=== PATIENT | female | born 1945 | race Caucasian/White ===

== ENCOUNTER 2016-12-20 12:19 | Outpatient (CLI) | payer OTHER ==
[2016-12-20 12:29] LABS: BASOPHILS % (AUTO) 0.6 % (0.0-3.0); EOSINOPHILS # (AUTO) 0.1 K/ul (0.0-0.7); EOSINOPHILS % (AUTO) 1.3 % (0.0-7.0); HEMATOCRIT 39.4 % (37.0-47.0); HEMOGLOBIN 13.5 g/dl (12.0-16.0); IMMATURE GRANULOCYTE % (AUTO) 0.3 % (0.0-5.0); LYMPHOCYTES # (AUTO) 2.3 K/uL (0.60-3.4); LYMPHOCYTES % (AUTO) 33.9 (10.0-50.0); MEAN CORPUSCULAR HEMOGLOBIN 31.3 pg (27.0-31.0); MEAN CORPUSCULAR HGB CONC 34.3 (31.8-35.4); MEAN CORPUSCULAR VOLUME 91.2 fl (81.0-99.0); MONOCYTES # (AUTO) 0.5 K/uL (0.4-2.0); MONOCYTES % (AUTO) 7.2 (0-10); NEUTROPHILS # (AUTO) 3.9 K/ul (2.0-6.9); NEUTROPHILS % (AUTO) 56.7; PLATELET COUNT 290 10^3/uL (140-440); RED BLOOD COUNT 4.32 10^6/ul (4.20-5.40); WHITE BLOOD COUNT 6.81 K/ul (4.6-10.2)
[2016-12-20 12:42] LABS: ALBUMIN 3.4 g/dL (3.4-5.0); ALBUMIN/GLOBULIN RATIO 1.06; ANION GAP 12.4; BILIRUBIN,TOTAL 0.53 mg/dL (0.00-1.20); BUN/CREATININE RATIO 11.49; CALCIUM 9.4 mg/dL (8.2-10.2); CREATININE 0.87 mg/dL (0.60-1.30); POTASSIUM 4.4 mmol/L (3.5-5.10); TOTAL PROTEIN 6.6 g/dL (5.8-8.1)
== END 2016-12-20 12:20 | disposition home or self-care (01) ==
LOC: LAB 12:19
PROVIDERS: ATTEND Nurse Practitioner Family
DX: R21 Rash and other nonspecific skin eruption (principal)
CPT/HCPCS: 36415; 80053; 85025

== ENCOUNTER 2017-01-04 10:00 | Outpatient (CLI) ==
--- NOTE | 2017-01-05 10:15 | MAMMO ---
EXAM: Digital screening mammogram with 3-D tomosynthesis and CAD HISTORY: Screening mammogram. COMPARISON: Mammogram 01/13/2016 and 01/13/2015 FINDINGS: Breast density is scattered fibroglandular densities. There are bilateral benign calcifica tions present. There is a left breast. Intramammary lymph node laterally with fatty hilum identifie d on tomosynthesis. There is no suspicious calcification or nodule. There is no interval change. IMPRESSION: No new or suspicious nodule or calcification. Recommendation: Annual screening mammogram. BIRADS II: Benign findings
== END 2017-01-04 10:01 | disposition home or self-care (01) ==
LOC: RAD 10:00
PROVIDERS: ATTEND Family Medicine
DX: Z12.31 Encounter for screening mammogram for malignant neoplasm of breast (principal)
CPT/HCPCS: 77067

== ENCOUNTER 2017-02-10 19:59 | Emergency (ER) ==
[2017-02-10 20:07] VITALS: BP 138/75; TEMP 99.9; BMI 28.2
[2017-02-10 21:20] LABS: BASOPHILS % (AUTO) 0.2 % (0.0-3.0); EOSINOPHILS # (AUTO) 0.1 K/ul (0.0-0.7); EOSINOPHILS % (AUTO) 1.6 % (0.0-7.0); HEMATOCRIT 34.7 % (37.0-47.0); HEMOGLOBIN 11.8 g/dl (12.0-16.0); IMMATURE GRANULOCYTE % (AUTO) 0.4 % (0.0-5.0); LYMPHOCYTES # (AUTO) 1.4 K/uL (0.60-3.4); LYMPHOCYTES % (AUTO) 17.7 (10.0-50.0); MEAN CORPUSCULAR HEMOGLOBIN 30.6 pg (27.0-31.0); MEAN CORPUSCULAR VOLUME 89.9 fl (81.0-99.0); MONOCYTES # (AUTO) 0.7 K/uL (0.4-2.0); MONOCYTES % (AUTO) 8.8 (0-10); NEUTROPHILS # (AUTO) 5.7 K/ul (2.0-6.9); NEUTROPHILS % (AUTO) 71.3; PLATELET COUNT 222 10^3/uL (140-440); RED BLOOD COUNT 3.86 10^6/ul (4.20-5.40); WHITE BLOOD COUNT 8.03 K/ul (4.6-10.2)
[2017-02-10 21:28] LABS: BILIRUBIN,URINE Negative (NEGATIVE); KETONES,URINE Negative (NEGATIVE); LEUKOCYTE ESTERASE ,URINE 2+ (NEGATIVE); NITRITE,URINE Positive (NEGATIVE); PROTEIN,URINE Trace (NEGATIVE); URINE, BLOOD 1+ (NEGATIVE)
[2017-02-10 21:30] LABS: ADD URINE MICROSCOPIC YES
[2017-02-10 21:31] LABS: BACTERIA,URINE 2+ (NOT PRESENT)
[2017-02-10 21:38] LABS: FLU INTERNAL QC INTERNAL QC VALID; MOLECULAR FLU A NEGATIVE (NEGATIVE); MOLECULAR FLU B NEGATIVE (NEGATIVE)
[2017-02-10 21:39] LABS: ALBUMIN 3.3 g/dL (3.4-5.0); ALBUMIN/GLOBULIN RATIO 0.97; ANION GAP 14.1; BILIRUBIN,TOTAL 0.4 mg/dL (0.00-1.20); BUN/CREATININE RATIO 11.53; CREATININE 0.78 mg/dL (0.60-1.30); POTASSIUM 4.1 mmol/L (3.5-5.10); TOTAL PROTEIN 6.7 g/dL (5.8-8.1)
[2017-02-10] MEDS ORDERED: DOXYCYCLINE HYCLATE PO STA (22:00)
--- NOTE | 2017-02-10 22:04 | ED.PDOC ---
General ED Provider: Dr. EVERTON ARIAS-ER Chief Complaint: Fever Stated Complaint: naomi got a fever -- Time Seen by Physician: 22:02 Mode of Arrival: Walk-In Information Source: Patient Exam Limitations: No limitations Primary Care Provider: EVERTON ARIAS Nursing and Triage Documentation Reviewed and Agree: Yes Reviewed sepsis parameters & appropriate labs ordered?: Yes System Inflammatory Response Syndrome: Not Applicable Sepsis Protocol: For patient's 13 years and over: Temp is 96.8 and below OR 101 and greater Pulse >90 BPM Resp >20/minute Acutely Altered Mental Status Are patient's symptoms suggestive of a new infection, such as: -Pneumonia -Skin, Soft Tissue -Endocarditis -UTI -Bone, Joint Infection -Implantable Device -Acute Abdominal Infection -Wound Infection -Meningitis -Blood Stream Catheter Infection -Unknown Miscellaneous Complaint Exam - Febrile Illness/Adult Complaint/Exam Onset/Duration: 24hrs Symptoms Are: Still present Initial Severity: Mild Current Severity: Mild Aggravating: Reports: None Alleviating: Reports: None Associated Signs and Symptoms: Reports: Nausea, Chills, Rash. Denies: Headache , Fluid intake, Short of air, Cough, Sore throat, Vomiting, Diaphoresis, Dysuria , Arthralgia, Stiff neck, Myalgia, Altered mental status Pseudomonas Risk Factors: Reports: None Patient Advised to Stop Smoking: No Review of Systems - Review Of Systems Constitutional: Reports: No symptoms, Chills, Fever Eyes: Reports: No symptoms Ears, Nose, Mouth, Throat: Reports: No symptoms Respiratory: Reports: No symptoms Cardiac: Reports: No symptoms GI: Reports: No symptoms : Reports: No symptoms Musculoskeletal: Reports: No symptoms Skin: Reports: Rash Neurological: Reports: No symptoms Endocrine: Reports: No symptoms Hematologic/Lymphatic: Reports: No symptoms All Other Systems: Reviewed and Negative Past Medical History - Past Medical History Previously Healthy: No Endocrine: Reports: Unknown Cardiovascular: Reports: Unknown Respiratory: Reports: Unknown Hematological: Reports: Unknown Gastrointestinal: Reports: Unknown Genitourinary: Reports: Unknown Neuro/Psych: Reports: Unknown Musculoskeletal: Reports: Unknown Cancer: Reports: Unknown Last Menstrual Period: na - Surgical History General Surgical History: Reports: Unknown - Family History Family History: Reports: Unknown - Social History Smoking Status: Never smoker Hx Substance Use: No Alcohol Screening: Occasionally - Immunizations Tetanus Shot up to Date: No Physical Exam - Physical Exam Appearance: Well-appearing, No pain distress, Well-nourished Eyes: [place], EOMI, Conjunctiva clear ENT: Ears normal, Nose normal, Oropharynx normal Neck: Supple Respiratory: Airway patent, Breath sounds clear, Breath sounds equal, Respirations nonlabored Cardiovascular: RRR, Pulses normal, No rub, No murmur GI/: Soft, Nontender, No masses, Bowel sounds normal, No Organomegaly Musculoskeletal: Normal strength Skin: Warm, Dry, Normal color Neurological: Sensation intact Psychiatric: Affect appropriate, Mood appropriate Critical Care Note - Critical Care Note Total Time (mins): 0 Course - Course Hematology/Chemistry: 02/10/17 21:15 02/10/17 21:15 Orders, Labs, Meds: Lab Review 02/10/17 02/10/17 02/10/17 21:15 21:15 21:15 WBC 8.03 RBC 3.86 L Hgb 11.8 L Hct 34.7 L MCV 89.9 MCH 30.6 MCHC 34.0 RDW Coeff of [place] 12.6 Plt Count 222 Immature Gran % (Auto) 0.4 Neut % (Auto) 71.3 Lymph % (Auto) 17.7 [place] % (Auto) 8.8 Eos % (Auto) 1.6 Baso % (Auto) 0.2 Immature Gran # (Auto) 0.0 Neut # 5.7 Lymph # 1.4 [place] # 0.7 Eos # 0.1 Baso # 0.0 ESR 39 H Sodium 135 L Potassium 4.1 Chloride 104 Carbon Dioxide 21 L Anion Gap 14.1 BUN 9 Creatinine 0.78 Estimated GFR (MDRD) 73.00 BUN/Creatinine Ratio 11.53 Glucose 107 Calcium 9.0 Total Bilirubin 0.4 AST 21 ALT 15 Alkaline Phosphatase 113 Total Protein 6.7 Albumin 3.3 L Globulin 3.4 Albumin/Globulin Ratio 0.97 Urine Color Urine Clarity Urine pH Ur Specific [place] Urine Protein Urine Glucose (UA) Urine Ketones Urine Blood Urine Nitrite Urine Bilirubin Urine Urobilinogen Ur Leukocyte Esterase Urine Microscopic RBC Urine Microscopic WBC Ur Squamous Epith Cells Ur Renal Epithelial Cell Urine Bacteria Influenza A (Rapid) Negative Influenza B (Rapid) Negative 02/10/17 21:15 WBC RBC Hgb Hct MCV MCH MCHC RDW Coeff of [place] Plt Count Immature Gran % (Auto) Neut % (Auto) Lymph % (Auto) [place] % (Auto) Eos % (Auto) Baso % (Auto) Immature Gran # (Auto) Neut # Lymph # [place] # Eos # Baso # ESR Sodium Potassium Chloride Carbon Dioxide Anion Gap BUN Creatinine Estimated GFR (MDRD) BUN/Creatinine Ratio Glucose Calcium Total Bilirubin AST ALT Alkaline Phosphatase Total Protein Albumin Globulin Albumin/Globulin Ratio Urine Color Yellow Urine Clarity Clear Urine pH 7.0 Ur Specific [place] 1.015 Urine Protein Trace Urine Glucose (UA) Negative Urine Ketones Negative Urine Blood 1+ Urine Nitrite Positive Urine Bilirubin Negative Urine Urobilinogen 1.0 Ur Leukocyte Esterase 2+ Urine Microscopic RBC 5-10 Urine Microscopic WBC 10-20 Ur Squamous Epith Cells 0-2 Ur Renal Epithelial Cell 2-5 Urine Bacteria 2+ Influenza A (Rapid) Influenza B (Rapid) Orders Category Date Time Status BLOOD CULTURE (ED ONLY) Stat LAB 02/10/17 21:15 Received CBC W/ AUTO DIFF Stat LAB 02/10/17 21:15 Completed COMPREHENSIVE METABOLIC PANEL Stat LAB 02/10/17 21:15 Completed ESR Stat LAB 02/10/17 21:15 Completed MOLECULAR GROUP A STREP Stat LAB 02/10/17 21:15 Results RAPID FLU A/B Stat LAB 02/10/17 21:15 Completed STREP SCREEN Stat LAB 02/10/17 21:15 Results URINALYSIS C & S IF INDICATED Stat LAB 02/10/17 21:15 Completed URINE CULTURE Stat LAB 02/10/17 21:29 Received Doxycycline Hyclate MEDS 02/10/17 22:00 Discontinued 100 mg PO ONCE STA CXR [CHEST, 2 VIEWS PA & LAT] Stat RADS 02/10/17 21:01 Completed Medications Discontinued Medications Generic Name Dose Route Start Last Admin Trade Name Jakubq PRN Reason Stop Dose Admin Doxycycline Hyclate 100 mg 02/10/17 22:00 02/10/17 22:12 Doxycycline Hyclate PO 02/10/17 22:01 100 mg ONCE STA Administration Vital Signs: Temp Pulse Resp BP Pulse Ox 02/10/17 20:01 99.9 F H 72 24 138/75 96 Departure - Departure Time of Disposition: 22:03 Disposition: HOME SELF-CARE Discharge Problem: Cellulitis Qualifiers: Site of cellulitis: extremity Site of cellulitis of extremity: lower extremity Laterality: unspecified laterality Qualified Code(s): L03.119 - Cellulitis of unspecified part of limb UTI (urinary tract infection) Qualifiers: Urinary tract infection type: site unspecified Hematuria presence: without hematuria Qualified Code(s): N39.0 - Urinary tract infection, site not specified Instructions: Urinary Tract Infection in Women (ED) Condition: Good Pt referred to PMD for follow-up: Yes Additional Instructions: augmentin 875mg bid x 7 days--keep legs elevated--see me tuesday if not improving(here) Allergies/Adverse Reactions: Allergies No Known Allergies Allergy (Verified 02/10/17 20:09) Home Medications: Ambulatory Orders Nebivolol HCl [Bystolic] 10 mg PO DAILY 06/10/14 [place]-3 Fatty Acids/Fish Oil [Fish Oil 1,000 Mg Softgel] 1 each PO DAILY Cholecalciferol (Vitamin D3) [Vitamin D3] 2,000 unit PO DAILY #30 tab-cap Disposition Discussed With: Patient
[2017-02-10 22:08] LABS: ERYTHROCYTE SEDIMENTATION RATE 39 mm/hr (0-20); ESR INTERNAL QC INTERNAL QC VALID
--- NOTE | 2017-02-10 22:18 | DI ---
EXAM: Chest two views HISTORY: Fever COMPARISON: None TECHNIQUE: Two views of the chest were performed FINDINGS: The lungs are clear. There is no pleural effusion or pneumothorax. The heart is borderli ne enlarged in size. The mediastinal contour is normal, noting atherosclerosis. There are no acute abnormalities of the bones. IMPRESSION: No acute cardiopulmonary process.
== END 2017-02-10 22:10 | disposition home or self-care (01) ==
LOC: ED 19:59
DX: L03.119 Cellulitis of unspecified part of limb (principal); N39.0 Urinary tract infection, site not specified
CPT/HCPCS: 36415; 80053; 81001; 85025; 85651; 87040; 87086; 87186; 87651; 87804; 87880; 99284

== ENCOUNTER 2017-11-02 09:31 | Outpatient (CLI) | END 2017-11-02 09:32 | disposition home or self-care (01) | LOC: LAB 09:31 | PROVIDERS: ATTEND Family Medicine | DX: I10 Essential (primary) hypertension (principal); R53.83 Other fatigue | CPT/HCPCS: 36415; 80053; 80061; 84443; 85025 ==

== ENCOUNTER 2018-03-07 09:48 | Day surgery (SDC) ==
[2018-03-07] MEDS ORDERED: DIPRIVAN 20 ML VIAL IVP ONE (11:35)
--- NOTE | 2018-03-08 14:05 | OP ---
INDICATIONS FOR PROCEDURE: 72 year old female presents for colonoscopy exam. She has a report history of adenomatous polyps with the last colonoscopy in January 2011. She has a family history of colon cancer involving her father in his 40's. MEDICATIONS: SEE ANESTHESIA NOTES. PROCEDURE: COLONOSCOPY. REPORT: The risks, benefits, alternatives and limitations were discussed in detail with the patient. Informed consent was obtained. After adequate sedation was achieved, a digital rectal exam revealed good tone, no masses. The colonoscope was introduced into the rectum and advanced under direct visual guidance to the cecum. The cecum was identified by the appendiceal orifice and IC valve. I then slowly withdrew the scope in a circumferential manner and examined the mucosa quite carefully. I looked on the proximal and distal sides of folds and flexures as best as possible. I was able to retroflex the scope in the right colon and the left colon to increase visualization. The colonic mucosa is unremarkable in it's entire length other than diverticulosis scattered throughout the descending and sigmoid colon. There was large and small mouth diverticuli present. On retroflex view of the anal canal there was small internal hemorrhoids. The prep was good. The withdraw time was 9 minutes and 15 seconds. The patient tolerated the procedure well with stable vital signs and pulse oximetry throughout. IMPRESSION: 1. Diverticulosis 2. Small internal hemorrhoids RECOMMENDATIONS: 1. High fiber diet 2. Office visit as needed 3. Colonoscopy examination again in 5 years or sooner if there are signs or symptoms to indicate otherwise. CC: Dr. Pily ZHANG
[2018-03-08 15:26] VITALS: BP 132/66
== END 2018-03-07 13:00 | disposition home or self-care (01) ==
LOC: SURG 09:48
PROVIDERS: ATTEND Internal Medicine Gastroenterology
DX: Z86.010 Personal history of colon polyps (principal); Z80.0 Family history of malignant neoplasm of digestive organs; K57.90 Diverticulosis of intestine, part unspecified, without perforation or abscess without bleeding; K64.8 Other hemorrhoids